=== PATIENT | male | born 1970 | race Caucasian/White ===

== ENCOUNTER 2017-07-03 11:21 | Emergency (ER) | payer OTHER | END 2017-07-03 14:07 | disposition home or self-care (01) | LOC: FER 11:21 | DX: S20.211A Contusion of right front wall of thorax, initial encounter (principal); S50.12XA Contusion of left forearm, initial encounter; S50.11XA Contusion of right forearm, initial encounter; S80.01XA Contusion of right knee, initial encounter; F17.210 Nicotine dependence, cigarettes, uncomplicated; Z88.0 Allergy status to penicillin; V49.40XA Driver injured in collision with unspecified motor vehicles in traffic accident, initial encounter; Y92.410 Unspecified street and highway as the place of occurrence of the external cause | CPT/HCPCS: 71020; 71100; 73060; 73090; 73564; 99284 ==

== ENCOUNTER 2022-01-29 07:49 | Emergency (ER) | payer OTHER ==
[2022-01-29] MEDS ORDERED: ULTRAM50 MG PO (09:48)
== END 2022-01-29 10:01 | disposition home or self-care (01) ==
LOC: FER 07:49
DX: R07.89 Other chest pain (principal); N28.9 Disorder of kidney and ureter, unspecified; F17.200 Nicotine dependence, unspecified, uncomplicated; Z88.0 Allergy status to penicillin; Z28.310 Unvaccinated for COVID-19
CPT/HCPCS: 71250; 93005; J1885